=== PATIENT | female | born 1945 | race Caucasian/White ===

== ENCOUNTER 2017-03-08 23:57 | Emergency (ER) | payer OTHER, MEDICARE ==
[~2017-03-08] VITALS: Ht 154.9 cm; Wt 60.6 kg
[~2017-03-08 23:57] MED LIST: APRISO0.375 GM PO; ATIVAN0.5 MG PO; BENTYL20 MG PO; CANASA1000 MG PR; CARAFATE1 GM PO; DAILY VALUE1 EACH PO; ESTRACE42.5 GM VG; FOLIC ACID0.4 MG PO; IMURAN50 MG PO; LEVO-T50 MCG PO; LEVOXYL100 MCG PO; METRONIDAZOLE250 MG PO; PRILOSEC OTC20 MG PO; PROBIOTIC1 EAC1 PO; TYLENOL EXTRA500 MG PO; ZANTAC150 MG PO; ZOFRAN ODT8 MG PO
[2017-03-09 01:13] LABS: HEMATOCRIT 43.1 % (36.0-46.0); MCH 32.1 PG (29.0-34.0); MCHC 33.6 G/DL (30.0-36.0); MEAN PLAT.VOLUME 8.4 uM^3 (9.5-12.4); PLATELET COUNT 359 K/uL (156-360); RBC DIS.WIDTH-CV 12.9 % (11.8-14.6); RBC DIS.WIDTH-SD 45.5 % (39-53); RED BLOOD COUNT 4.52 M/uL (3.80-5.20); WHITE BLOOD COUNT 11.6 K/uL (4.1-10.2)
[2017-03-09 01:14] LABS: MCV 95.4 FL (83-99)
[2017-03-09 01:24] LABS: CHLORIDE 102 mEq/L (99-109); POTASSIUM 3.9 mEq/L (3.7-5.4); SODIUM 137 mEq/L (136-147)
[2017-03-09 01:27] LABS: GLUCOSE 101 mg/dL (70-99)
[2017-03-09 01:28] LABS: ANION GAP 11 MEQ/L (2-14)
[2017-03-09 01:29] LABS: TOTAL BILIRUBIN 0.7 mg/dL (0.0-1.0)
[2017-03-09 01:30] LABS: ALKALINE PHOSPHATASE 77 IU/L (3-129); GFR ESTIMATE (CALCULATED) > 59 mL/min/
[2017-03-09 01:31] LABS: UREA NITROGEN (BUN) 14 mg/dL (9-23)
[2017-03-09 02:13] LABS: ADD MIUA? YES; BILIRUBIN NEGATIVE; BLOOD SMALL; COLOR STRAW ((YELLOW)); GLUCOSE (STRIP) NEGATIVE; KETONES 5; LEUKOCYTES NEGATIVE; NITRITE NEGATIVE; PROTEIN (STRIP) NEGATIVE; SPECIFIC GRAVITY 1.011 (1.000-1.030); UROBILINOGEN 0.2 MG/DL (0.2-1.0)
[2017-03-09 02:15] LABS: BACTERIA RARE /HPF; EPITHELIAL CELLS RARE /HPF; MUCUS NONE SEEN /LPF; RED BLOOD CELLS 0-5 /HPF (0-5); UCUL ADDED? NO; WHITE BLOOD CELLS 0-5 /HPF (0-5)
[2017-03-09 03:17] VITALS: BP 138/60
== END 2017-03-09 03:18 | disposition home or self-care (01) ==
LOC: EME 23:57 → EXP 23:57
PROVIDERS: Physician Assistant
DX: K59.00 Constipation, unspecified (principal); R10.9 Unspecified abdominal pain; E03.9 Hypothyroidism, unspecified
CPT/HCPCS: 74177; 80053; 81003; 85027; 99281; 99284; J2270; J2405; J7030

== ENCOUNTER 2017-03-22 01:05 | Emergency (ER) | payer OTHER, MEDICARE ==
[~2017-03-22] VITALS: Ht 154.9 cm; Wt 57.4 kg
[2017-03-22 01:37] LABS: HEMATOCRIT 45.8 % (36.0-46.0); MCH 32.4 PG (29.0-34.0); MCHC 33.8 G/DL (30.0-36.0); MCV 95.8 FL (83-99); PLATELET COUNT 380 K/uL (156-360); RBC DIS.WIDTH-CV 12.3 % (11.8-14.6); RBC DIS.WIDTH-SD 43.6 % (39-53); RED BLOOD COUNT 4.78 M/uL (3.80-5.20)
[2017-03-22 01:47] LABS: CHLORIDE 102 mEq/L (99-109); POTASSIUM 3.9 mEq/L (3.7-5.4); SODIUM 136 mEq/L (136-147)
[2017-03-22 01:50] LABS: GLUCOSE 107 mg/dL (70-99)
[2017-03-22 01:51] LABS: ANION GAP 9 MEQ/L (2-14)
[2017-03-22 01:52] LABS: TOTAL BILIRUBIN 0.5 mg/dL (0.0-1.0)
[2017-03-22 01:53] LABS: ALKALINE PHOSPHATASE 59 IU/L (3-129); GFR ESTIMATE (CALCULATED) > 59 mL/min/
[2017-03-22 01:54] LABS: UREA NITROGEN (BUN) 6 mg/dL (9-23)
[2017-03-22 02:33] LABS: LIPASE 19 U/L (1.0-51.0)
[2017-03-22 04:25] LABS: ADD MIUA? YES; BILIRUBIN NEGATIVE; BLOOD SMALL; COLOR STRAW ((YELLOW)); GLUCOSE (STRIP) NEGATIVE; KETONES 5; LEUKOCYTES NEGATIVE; NITRITE NEGATIVE; PROTEIN (STRIP) NEGATIVE; SPECIFIC GRAVITY 1.006 (1.000-1.030); UROBILINOGEN 0.2 MG/DL (0.2-1.0)
[2017-03-22 04:30] LABS: BACTERIA RARE /HPF; EPITHELIAL CELLS RARE /HPF; MUCUS NONE SEEN /LPF; RED BLOOD CELLS 0-5 /HPF (0-5); UCUL ADDED? NO; WHITE BLOOD CELLS 0-5 /HPF (0-5)
[2017-03-22] MEDS ORDERED: DULCOLAX10 MG PR (05:20)
[2017-03-22 05:43] VITALS: BP 153/97
[2017-03-23] MEDS ORDERED: MIRALAX255 GM PO (13:23)
[2017-03-23] MEDS ORDERED: CITRUCEL907 G1 PO (13:23)
== END 2017-03-22 05:44 | disposition home or self-care (01) ==
LOC: EME 01:05
DX: K59.00 Constipation, unspecified (principal); R10.9 Unspecified abdominal pain; R31.9 Hematuria, unspecified; E03.9 Hypothyroidism, unspecified; K51.90 Ulcerative colitis, unspecified, without complications
CPT/HCPCS: 71020; 74177; 80053; 81003; 83690; 85027; 99281; 99284; J1885; J2270; J7030; S0028

== ENCOUNTER 2017-03-23 07:11 | Inpatient (IN) | payer OTHER, MEDICARE ==
[~2017-03-23] VITALS: Ht 154.9 cm; Wt 57.7 kg
[~2017-03-23 07:11] MED LIST changes: +DULCOLAX10 MG PR
[2017-03-23 08:18] LABS: BASOPHIL COUNT 0.1 K/uL (0-0.1); EOSINOPHIL (%) 0.6 % (0-5); EOSINOPHIL COUNT 0.1 K/uL (0-0.3); HEMATOCRIT 47.6 % (36.0-46.0); IMMATURE GRANULOCYTE (%) 0.4 % (0.0-0.7); INSTRUMENT ABS NEUTROPHIL CT 8.5 K/uL; LYMPHOCYTE COUNT 1.3 K/uL (1.0-2.8); MCH 31.9 PG (29.0-34.0); MCHC 34.2 G/DL (30.0-36.0); MCV 93.2 FL (83-99); MEAN PLAT.VOLUME 8.3 uM^3 (9.5-12.4); MONOCYTE (%) 7.5 % (3-12); MONOCYTE COUNT 0.8 K/uL (0-0.8); NEUTROPHIL (%) 78.6 % (45-76); NEUTROPHIL COUNT 8.5 K/uL (1.8-6.4); PLATELET COUNT 376 K/uL (156-360); RBC DIS.WIDTH-CV 12.4 % (11.8-14.6); RBC DIS.WIDTH-SD 42.8 % (39-53); RED BLOOD COUNT 5.11 M/uL (3.80-5.20); WHITE BLOOD COUNT 10.8 K/uL (4.1-10.2)
[2017-03-23 08:34] LABS: CHLORIDE 103 mEq/L (99-109); POTASSIUM 3.9 mEq/L (3.7-5.4); SODIUM 139 mEq/L (136-147)
[2017-03-23 08:36] LABS: GLUCOSE 105 mg/dL (70-99)
[2017-03-23 08:38] LABS: ANION GAP 14 MEQ/L (2-14); TOTAL BILIRUBIN 0.6 mg/dL (0.0-1.0)
[2017-03-23 08:40] LABS: ALKALINE PHOSPHATASE 65 IU/L (3-129); GFR ESTIMATE (CALCULATED) > 59 mL/min/
[2017-03-23 08:41] LABS: UREA NITROGEN (BUN) 5 mg/dL (9-23)
[2017-03-23 08:43] LABS: LIPASE 11 U/L (1.0-51.0)
[2017-03-23 09:18] LABS: ADD MIUA? YES; BILIRUBIN NEGATIVE; BLOOD SMALL; COLOR STRAW ((YELLOW)); GLUCOSE (STRIP) NEGATIVE; KETONES 20; LEUKOCYTES NEGATIVE; NITRITE NEGATIVE; PROTEIN (STRIP) NEGATIVE; SPECIFIC GRAVITY 1.004 (1.000-1.030); UROBILINOGEN 0.2 MG/DL (0.2-1.0)
[2017-03-23 09:25] LABS: BACTERIA RARE /HPF; EPITHELIAL CELLS RARE /HPF; MUCUS TRACE /LPF; RED BLOOD CELLS 0-5 /HPF (0-5); UCUL ADDED? NO; WHITE BLOOD CELLS 0-5 /HPF (0-5)
[2017-03-23] MEDS ORDERED: MIRALAX255 GM PO (13:23)
[2017-03-23] MEDS ORDERED: CITRUCEL907 G1 PO (13:23)
[2017-03-23 14:48] VITALS: BP 173/90
[2017-03-23 19:05] VITALS: BP 134/77
[2017-03-24 03:50] VITALS: BP 142/70
[2017-03-24 06:34] LABS: ANION GAP 8 MEQ/L (2-14); CHLORIDE 106 MEQ/L (99-109); GFR ESTIMATE (CALCULATED) > 59 mL/min/; GLUCOSE 92 mg/dL (70-99); POTASSIUM 3.4 MEQ/L (3.7-5.4); SAMPLE HEMOLYSIS CHECK 0; SAMPLE ICTERIC CHECK 0; SAMPLE LIPEMIA CHECK 0; SODIUM 142 MEQ/L (136-147); UREA NITROGEN (BUN) 4 mg/dL (9-23)
[2017-03-24 08:14] VITALS: BP 131/77
[2017-03-24 12:12] VITALS: BP 138/87
[2017-03-24 19:00] VITALS: BP 142/78
[2017-03-24 23:58] VITALS: BP 118/64
[2017-03-25 04:11] VITALS: BP 128/64
[2017-03-25 06:04] LABS: ANION GAP 6 MEQ/L (2-14); CHLORIDE 108 MEQ/L (99-109); GFR ESTIMATE (CALCULATED) > 59 mL/min/; GLUCOSE 87 mg/dL (70-99); POTASSIUM 3.6 MEQ/L (3.7-5.4); SAMPLE HEMOLYSIS CHECK 0; SAMPLE ICTERIC CHECK 0; SAMPLE LIPEMIA CHECK 0; SODIUM 139 MEQ/L (136-147); UREA NITROGEN (BUN) 4 mg/dL (9-23)
[2017-03-25 07:45] VITALS: BP 127/75
[2017-03-25 12:18] VITALS: BP 137/74
[2017-03-25 16:29] VITALS: BP 112/67
[2017-03-25 20:32] VITALS: BP 129/68
[2017-03-26 04:38] VITALS: BP 120/64
[2017-03-26 07:23] VITALS: BP 112/63
[2017-03-26 11:48] VITALS: BP 120/66
[2017-03-26 14:50] LABS: ANION GAP 6 MEQ/L (2-14); CHLORIDE 103 MEQ/L (99-109); GFR ESTIMATE (CALCULATED) > 59 mL/min/; GLUCOSE 109 mg/dL (70-99); SAMPLE HEMOLYSIS CHECK 0; SAMPLE ICTERIC CHECK 0; SAMPLE LIPEMIA CHECK 0; SODIUM 139 MEQ/L (136-147); UREA NITROGEN (BUN) 4 mg/dL (9-23)
[2017-03-26 15:03] VITALS: BP 116/67
[2017-03-26 18:03] VITALS: BP 121/72
[2017-03-26 19:25] VITALS: BP 111/69
[2017-03-27 00:11] VITALS: BP 115/74
[2017-03-27 04:03] VITALS: BP 113/70
[2017-03-27 06:55] VITALS: BP 106/71
[2017-03-27 12:20] VITALS: BP 108/70
[2017-03-27 16:20] VITALS: BP 101/60
[2017-03-27 23:10] VITALS: BP 112/70
[2017-03-28 06:52] LABS: BASOPHIL COUNT 0.1 K/uL (0-0.1); EOSINOPHIL COUNT 0.4 K/uL (0-0.3); HEMATOCRIT 42.8 % (36.0-46.0); IMMATURE GRANULOCYTE (%) 0.5 % (0.0-0.7); IMMATURE GRANULOCYTE COUNT 0.1 K/uL; INSTRUMENT ABS NEUTROPHIL CT 9.4 K/uL; LYMPHOCYTE COUNT 2.3 K/uL (1.0-2.8); MCH 31.6 PG (29.0-34.0); MCHC 31.8 G/DL (30.0-36.0); MEAN PLAT.VOLUME 8.3 uM^3 (9.5-12.4); MONOCYTE (%) 6.5 % (3-12); MONOCYTE COUNT 0.8 K/uL (0-0.8); NEUTROPHIL (%) 71.9 % (45-76); NEUTROPHIL COUNT 9.4 K/uL (1.8-6.4); PLATELET COUNT 314 K/uL (156-360); RBC DIS.WIDTH-CV 12.7 % (11.8-14.6); RBC DIS.WIDTH-SD 46.9 % (39-53); RED BLOOD COUNT 4.31 M/uL (3.80-5.20)
[2017-03-28 06:54] LABS: MCV 99.3 FL (83-99)
[2017-03-28 06:59] LABS: ANION GAP 7 MEQ/L (2-14); CHLORIDE 101 MEQ/L (99-109); GFR ESTIMATE (CALCULATED) > 59 mL/min/; GLUCOSE 96 mg/dL (70-99); POTASSIUM 4.2 MEQ/L (3.7-5.4); SAMPLE HEMOLYSIS CHECK 0; SAMPLE ICTERIC CHECK 0; SAMPLE LIPEMIA CHECK 0; SODIUM 138 MEQ/L (136-147); UREA NITROGEN (BUN) 11 mg/dL (9-23)
[2017-03-28 08:31] VITALS: BP 100/67
[2017-03-28] MEDS ORDERED: XIFAXAN550 MG PO (12:45)
[2017-03-28] MEDS ORDERED: TYLENOL REGULA325 MG PO (12:46)
[2017-03-28] MEDS ORDERED: BENTYL20 MG PO (12:46)
== END 2017-03-28 14:58 | disposition home or self-care (01) | DRG 392 ==
LOC: EME 07:11 → EDOF 12:59 → 5WEST 12:59 → EDOF 12:59 → 5WEST 14:45 → 2EAST 03-25 10:18 → 5WEST 03-25 10:18 → 2EAST 03-26 17:48
PROVIDERS: Emergency Medicine; Hospitalist; Internal Medicine; Nurse Practitioner Adult Health; Specialist
DX: K57.30 Diverticulosis of large intestine without perforation or abscess without bleeding (principal); K51.90 Ulcerative colitis, unspecified, without complications; K59.00 Constipation, unspecified; K64.8 Other hemorrhoids; R31.29 Other microscopic hematuria; K21.9 Gastro-esophageal reflux disease without esophagitis; E03.9 Hypothyroidism, unspecified; N81.6 Rectocele; R63.4 Abnormal weight loss; G89.29 Other chronic pain; F41.9 Anxiety disorder, unspecified; Z90.710 Acquired absence of both cervix and uterus; Z90.49 Acquired absence of other specified parts of digestive tract
CPT/HCPCS: 71020; 72148; 74020; 74177; 80048; 80053; 81003; 83516 90; 83690; 83735; 84443; 85025; 85027; 85651; 86038; 88305; 99281; 99284; 99285; G0378; J1650; J1885; J2270; J2405; J3480; J7030; S0028